=== PATIENT | female | born 1995 | race American Indian/Alaskan Native ===

== ENCOUNTER 2018-07-15 12:01 | Emergency (ER) | payer BC, MEDICAID ==
--- NOTE | 2018-07-15 12:09 | Emergency Department Report ---
Chief Complaint: Skin/Abscess/Foreign Body Stated Complaint: BARTHOLIN CYST/ABSCESS Time Seen by Provider: 07/15/18 12:07 - HPI History of Present Illness: pt presents with right sided bartholins cyst that began a week ago no drainage states she has this one time previously no fever no PMHx no allergies to meds non smoker +drinker no drug use MSE screening note: Focused history performed. ED Disposition for MSE Condition: Stable
[2018-07-15 12:10] VITALS: BP 140/76
--- NOTE | 2018-07-15 13:11 | Emergency Department Report ---
Abscess Boil HPI - HPI Chief Complaint: Skin/Abscess/Foreign Body Stated Complaint: BARTHOLIN CYST/ABSCESS Time Seen by Provider: 07/15/18 12:07 Duration: 2 Days Location: Other (right Bartholin abscess) Severity: Mild History: Yes Pain, No Fever, No Purulent Drainage, No Numbness, No Foreign Body, No Previous History, No Insect Bite HPI: This is a 23-year-old female nontoxic, well nourished in appearance, no acute signs of distress presents to the ED with c/o of right Bartholin abscess. Patient denies any pus, drainage, fever, chills, nausea, vomiting, chest pain or shortness of breath. Patient denies any allergies to significant past medical history. Home Medications: Previous Rx's Medication Instructions Recorded Last Taken Type Acetaminophen/Codeine [Tylenol 1 tab PO Q6H PRN #12 tab 07/15/18 Unknown Rx /Codeine # 3 tab] Sulfamethoxazole/Trimethoprim 1 each PO BID #14 tablet 07/15/18 Unknown Rx [Bactrim DS TAB] Allergies/Adverse Reactions: Allergies Allergy/AdvReac Type Severity Reaction Status Date / Time No Known Allergies Allergy Unverified 07/15/18 12:10 ED Review of Systems ROS: Stated complaint: BARTHOLIN CYST/ABSCESS Other details as noted in HPI Constitutional: denies: chills, fever Eyes: denies: eye pain, eye discharge, vision change ENT: denies: ear pain, throat pain Respiratory: denies: cough, shortness of breath, wheezing Cardiovascular: denies: chest pain, palpitations Endocrine: no symptoms reported Gastrointestinal: denies: abdominal pain, nausea, diarrhea Genitourinary: denies: urgency, dysuria, discharge Musculoskeletal: denies: back pain, joint swelling, arthralgia Skin: denies: rash, lesions Neurological: denies: headache, weakness, paresthesias Psychiatric: denies: anxiety, depression Hematological/Lymphatic: denies: easy bleeding, easy bruising ED Past Medical Hx - Past Medical History Previous Medical History?: No - Surgical History Past Surgical History?: No - Social History Smoking Status: Never Smoker Substance Use Type: Alcohol, Non Opiate Pain - Medications Home Medications: Home Medications Medication Instructions Recorded Confirmed Last Taken Type Acetaminophen/Codeine [Tylenol 1 tab PO Q6H PRN #12 tab 07/15/18 Unknown Rx /Codeine # 3 tab] Sulfamethoxazole/Trimethoprim 1 each PO BID #14 tablet 07/15/18 Unknown Rx [Bactrim DS TAB] ED Abscess Boil Physical Exam - Exam General: Vital signs noted. No distress. Alert and acting appropriately. Size: 2 cm Exam: Yes Tenderness, Yes Fluctuance, Yes Normal Neurologic Exam, Yes Normal Circulation, No Surrounding Cellulites/Erythema, No Lymphangitis, No Crepitation, No Heart Murmur Exam: Trinity Hudson RN present during exam and incision and drainage I & D Note - I & D Note I & D Note: Under sterile field, I used Betadine to cleanse the area. I then used 2% lidocaine plain with 25-gauge 5/8 needle to inject area for anesthetic purposes. Total volume injected 3 mL. I then used an 11 blade to make a 1 cm incision. About 2 mL's of purulent drainage has been noted. I then used a hemostat to break the abscess formation. I then used sterile 0.9% normal saline flush to flush the wound with total volume of 40 mL used. I then put a 1 inch iodoform packing to the incision. A sterile 4 x 4 with tape has been applied as dressing. Bleeding is under control. Patient tolerated the procedure well with no signs of distress noted. Chaperonekristen Hudson RN present during the procedure. ED Course Vital Signs 07/15/18 12:07 Temperature 98.3 F Pulse Rate 84 Respiratory 18 Rate Blood Pressure 140/76 O2 Sat by Pulse 100 Oximetry - Reevaluation(s) Reevaluation #1: 07/15/18 13:08 Patient is speaking in full sentences with no signs of distress noted. Critical care attestation.: If time is entered above; I have spent that time in minutes in the direct care of this critically ill patient, excluding procedure time. ED Medical Decision Making - Medical Decision Making This is a 23-year-old female that presents with right Bartholin abscess. Patient is stable and was examined by me. This is incision and drainage and has been performed and patient tolerated well. A sterile dressing has been applied. Patient was educated on proper wound care. Patient is discharged with Bactrim and Tylenol with codeine and was instructed not to operate any machinery while taking Tylenol with codeine due to drowsiness. Patient was instructed to return in 2 days for packing removal. Patient was instructed to refer to Follow-up with a primary care doctor in 3-5 days or if symptoms worsen and continue return to emergency room as soon as possible. At time of discharge, the patient does not seem toxic or ill in appearance. No acute signs of distress noted. Patient agrees to discharge treatment plan of care. No further questions noted by the patient. ED Disposition Clinical Impression: Bartholin's gland abscess Disposition: TO HOME OR SELFCARE Is pt being admited?: No Does the pt Need Aspirin: No Condition: Stable Instructions: Acetaminophen/Codeine (By mouth), Bartholin Cyst (ED), Incision and Drainage (ED) Additional Instructions: Follow-up with a primary care doctor in 3-5 days or if symptoms worsen and continue return to emergency room as soon as possible. Do not operate any machinery while taking Tylenol with codeine as this may cause drowsiness. Return in 2 days for packing removal. Prescriptions: Sulfamethoxazole/Trimethoprim [Bactrim DS TAB] 1 each PO BID #14 tablet Acetaminophen/Codeine [Tylenol /Codeine # 3 tab] 1 tab PO Q6H PRN #12 tab PRN Reason: Pain , Severe (7-10) Referrals: PRIMARY CAREMD [Referring] - 3-5 Days URIAH PAEZ MD [Staff Physician] - 3-5 Days [facility] [Outside] - 3-5 Days [facility] [Outside] - 3-5 Days Forms: Work/School Release Form(ED)
== END 2018-07-15 13:25 | disposition home or self-care (01) ==
LOC: ED 12:01
DX: N75.0 Cyst of Bartholin's gland (principal)

== ENCOUNTER 2018-10-05 12:26 | Emergency (ER) | payer BC, MEDICAID ==
--- NOTE | 2018-10-05 12:32 | Event Note ---
ED Screening Note Date of service: 10/05/18 Time: 12:31 ED Screening Note: This is a 23 y.o. F. that presents for packing removal from I&D 3 days ago. LMP 09/23/2018 This initial assessment/diagnostic orders/clinical plan/treatment(s) is/are subject to change based on patients health status, clinical progression and re- assessment by fellow clinical providers in the ED. Further treatment and workup at subsequent clinical providers discretion. Patient/guardian urged not to elope from the ED as their condition may be serious if not clinically assessed and managed. Initial orders include: ACC for further evaluation
[2018-10-05 12:33] VITALS: BP 106/70
--- NOTE | 2018-10-05 13:04 | Emergency Department Report ---
ED Female HPI - General Chief complaint: Skin/Abscess/Foreign Body Stated complaint: FOLLOW UP/PACKING REMOVAL Time Seen by Provider: 10/05/18 12:31 Source: patient Mode of arrival: Ambulatory Limitations: No Limitations - History of Present Illness Initial comments: Patient is a 23-year-old female presents to the emergency room with complaints of packing removal. she was evaluated in the emergency room on 10/02 for a right-sided Bartholin's cyst and had a I&D performed at that time. She states she has noticed a small amount of blood but denies any purulent drainage. She denies any fever or pain. she states she has been taking her antibiotics as prescribed. She states she has an appointment (10/08/18) Monday at [facility] MECHANICAL EQUIPMENT SALES ENGINEER. last menstrual cycle was September 23. Denies any past medical history or allergies to medications. - Related Data Previous Rx's Medication Instructions Recorded Last Taken Type Acetaminophen/Codeine [Tylenol 1 tab PO Q6H PRN #12 tab 07/15/18 Unknown Rx /Codeine # 3 tab] Sulfamethoxazole/Trimethoprim 1 each PO BID #14 tablet 07/15/18 Unknown Rx [Bactrim DS TAB] Fluconazole [Diflucan TAB] 150 mg PO DAILY 2 Days #2 tablet 10/02/18 Unknown Rx Ibuprofen [Motrin 800 MG tab] 800 mg PO Q8HR PRN #20 tablet 10/02/18 Unknown Rx cephALEXin [Keflex] 500 mg PO BID #20 capsule 10/02/18 Unknown Rx Allergies Allergy/AdvReac Type Severity Reaction Status Date / Time No Known Allergies Allergy Unverified 07/15/18 12:10 ED Review of Systems ROS: Stated complaint: FOLLOW UP/PACKING REMOVAL Other details as noted in HPI Comment: All other systems reviewed and negative ED Past Medical Hx - Past Medical History Previous Medical History?: No - Surgical History Past Surgical History?: No - Social History Smoking Status: Never Smoker Substance Use Type: Alcohol, Marijuana - Medications Home Medications: Home Medications Medication Instructions Recorded Confirmed Last Taken Type Acetaminophen/Codeine [Tylenol 1 tab PO Q6H PRN #12 tab 07/15/18 Unknown Rx /Codeine # 3 tab] Sulfamethoxazole/Trimethoprim 1 each PO BID #14 tablet 07/15/18 Unknown Rx [Bactrim DS TAB] Fluconazole [Diflucan TAB] 150 mg PO DAILY 2 Days #2 tablet 10/02/18 Unknown Rx Ibuprofen [Motrin 800 MG tab] 800 mg PO Q8HR PRN #20 tablet 10/02/18 Unknown Rx cephALEXin [Keflex] 500 mg PO BID #20 capsule 10/02/18 Unknown Rx ED Physical Exam - General Limitations: No Limitations General appearance: alert, in no apparent distress - Head Head exam: Present: atraumatic, normocephalic - Eye Eye exam: Present: normal appearance - ENT ENT exam: Present: mucous membranes moist - External exam: Present: other (small incision inside the right vaginal wall with packing in place, no drainage, no fluctuance, no induration, no surrounding erythema, powder mill operator: KIMMIE garcia) - Neurological Exam Neurological exam: Present: alert, oriented X3 - Psychiatric Psychiatric exam: Present: normal affect, normal mood - Skin Skin exam: Present: warm, dry ED Course Vital Signs 10/05/18 12:32 Temperature 98.1 F Pulse Rate 78 Respiratory 16 Rate Blood Pressure 106/70 O2 Sat by Pulse 100 Oximetry - Reevaluation(s) Reevaluation #1: 10/05/18 13:16 packing removed, pt tolerated well, no purulent drainage, no bleeding, irrigated with 20 cc of normal saline, small 0.5 cm incision present ED Medical Decision Making - Medical Decision Making Patient is a 23-year-old female presents to the emergency room with complaints o f packing removal. she was evaluated in the emergency room on 10/02 for a right- sided Bartholin's cyst and had a I&D performed at that time. She states she has noticed a small amount of blood but denies any purulent drainage. She denies any fever or pain. she states she has been taking her antibiotics as prescribed. She states she has an appointment (10/08/18) Monday at [facility] MECH[employer] EQUIPMENT SALES ENGINEER. last menstrual cycle was September 23. Denies any past medical history or allergies to medications. on exam: small incision inside the right vaginal wall with packing in place, no drainage, no fluctuance, no induration, no surrounding erythema, powder mill operator: KIMMIE garcia. packing removed with no difficulty or complications, no drainage present, irrigated with 20 cc of saline. advised pt to please keep area clean and dry. Please abstain from sexual intercourse. continue taking your antibiotics as prescribed. May wash area with soap and water and immediately dry. No hot tub, Bath tub, pool, soaking in water. Keep your appointment with your MECHANICAL EQUIPMENT SALES ENGINEER on Monday. Return to the emergency room for any new or worsening symptoms. Critical care attestation.: If time is entered above; I have spent that time in minutes in the direct care of this critically ill patient, excluding procedure time. ED Disposition Clinical Impression: Abscess packing removal, Cyst of right Bartholin's gland Disposition: TO HOME OR SELFCARE Is pt being admited?: No Does the pt Need Aspirin: No Condition: Stable Instructions: Bartholin Cyst (ED) Additional Instructions: Please keep area clean and dry. Please abstain from sexual intercourse. continue taking your antibiotics as prescribed. May wash area with soap and water and immediately dry. No hot tub, Bath tub, pool, soaking in water. Keep your appointment with your MECHANICAL EQUIPMENT SALES ENGINEER on Monday. Return to the emergency room for any new or worsening symptoms. [facility] RON [Referring] - 2-3 Days [facility], MECHANICAL EQUIPMENT SALES ENGINEER [Other] - 2-3 Days Time of Disposition: 13:17 Print Language: TURKISH
== END 2018-10-05 13:31 | disposition home or self-care (01) ==
LOC: ED 12:26
DX: Z48.01 Encounter for change or removal of surgical wound dressing (principal); Z79.899 Other long term (current) drug therapy; F12.10 Cannabis abuse, uncomplicated

== ENCOUNTER 2019-12-16 18:49 | Emergency (ER) | payer BC, MEDICAID ==
[2019-12-16 20:59] VITALS: BP 135/80
[2019-12-17] MEDS ORDERED: HYDROcodone/ACETAMINOPHEN 7.5-325MG TAB PO ONE (03:18)
[2019-12-17] MEDS ORDERED: SULFAMETHOXAZOLE/TRIMETHOPRIM 800/160MG DS TAB PO ONE (03:18)
[2019-12-17] MEDS ORDERED: LIDOCAINE (1%) 10 MG/1 ML VIAL 20 ML MDV INFILTRATI ONE (03:18)
[2019-12-17] MEDS ORDERED: ONDANSETRON 4 MG ODT TAB PO ONE (03:18)
[2019-12-17] MEDS ORDERED: IBUPROFEN 600 MG TAB PO ONE (03:19)
--- NOTE | 2019-12-17 04:19 | Emergency Department Report ---
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 Patient states that the pain is worse with any movement or ambulation. Patient states that the swelling Bartholin cyst is typical of the previous Bartholin cyst abscesses she has had in the past which she states has been 6 in number. Patient denies fever, chills, nausea, vomiting, vaginal bleeding, vaginal discharge, dizziness, syncope, traumatic injury, headache, abdominal pain, low back pain or cough. MD Complaint: other (right labial swelling and pain) -: Sudden, days(s) (2) Location: labia (right labium pain and swelling) Radiation: non-radiating Severity: severe Severity scale (0 -10): 8 Quality: sharp, aching Consistency: constant Improves with: none Worsens with: intercourse, movement Are you Now?: No Last Menstrual Period: 12/05/19 EDC: 09/10/20 Associated Symptoms: denies other symptoms, headaches, rash (swollen right labial rash with pain). denies: vaginal discharge, vaginal bleeding, abdominal pain, nausea/vomiting, fever/chills, loss of appetite, dysuria, hematuria, shortness of breath, syncope, weakness, other - Related Data Sexually active: Yes : 1 Para: 1 A: 0 Previous Rx's Medication Instructions Recorded Last Taken Type Ibuprofen [Motrin 800 MG tab] 800 mg PO Q8HR PRN #20 tablet 10/02/18 Unknown Rx cephALEXin [Keflex] 500 mg PO BID #20 capsule 10/02/18 Unknown Rx Acetaminophen/Codeine [Tylenol 1 tab PO Q6H PRN #12 tab 12/17/19 Unknown Rx /Codeine # 3 tab] Clindamycin [Clindamycin CAP] 300 mg PO Q8HR #60 capsule 12/17/19 Unknown Rx Fluconazole (Nf) [Diflucan TAB] 150 mg PO DAILY 2 Days #2 tablet 12/17/19 Unknown Rx Ibuprofen [Motrin] 600 mg PO Q8H PRN #30 tablet 12/17/19 Unknown Rx Ondansetron [Zofran Odt] 4 mg PO Q6HR PRN #15 tab.rapdis 12/17/19 Unknown Rx Sulfamethoxazole/Trimethoprim 1 each PO BID #20 tablet 12/17/19 Unknown Rx [Bactrim DS TAB] Allergies Allergy/AdvReac Type Severity Reaction Status Date / Time nickel Allergy Rash Verified 12/16/19 20:57 ED Review of Systems ROS: Stated complaint: ABCESS Other details as noted in HPI Constitutional: denies: chills, fever Eyes: denies: eye pain, eye discharge, vision change ENT: denies: ear pain, throat pain Respiratory: denies: cough, shortness of breath, wheezing Cardiovascular: denies: chest pain, palpitations Endocrine: no symptoms reported Gastrointestinal: denies: abdominal pain, nausea, diarrhea Genitourinary: denies: urgency, dysuria, discharge Musculoskeletal: denies: back pain, joint swelling, arthralgia Skin: rash (swollen painful rash on right labium majora). denies: lesions Neurological: denies: headache, weakness, paresthesias Psychiatric: denies: anxiety, depression Hematological/Lymphatic: denies: easy bleeding, easy bruising ED Past Medical Hx - Past Medical History Previous Medical History?: Yes Additional medical history: barthial cyst - Surgical History Past Surgical History?: No - Social History Smoking Status: Never Smoker Substance Use Type: Alcohol, Marijuana - Medications Home Medications: Home Medications Medication Instructions Recorded Confirmed Last Taken Type Ibuprofen [Motrin 800 MG tab] 800 mg PO Q8HR PRN #20 tablet 10/02/18 Unknown Rx cephALEXin [Keflex] 500 mg PO BID #20 capsule 10/02/18 Unknown Rx Acetaminophen/Codeine [Tylenol 1 tab PO Q6H PRN #12 tab 12/17/19 Unknown Rx /Codeine # 3 tab] Clindamycin [Clindamycin CAP] 300 mg PO Q8HR #60 capsule 12/17/19 Unknown Rx Fluconazole (Nf) [Diflucan TAB] 150 mg PO DAILY 2 Days #2 tablet 12/17/19 Unknown Rx Ibuprofen [Motrin] 600 mg PO Q8H PRN #30 tablet 12/17/19 Unknown Rx Ondansetron [Zofran Odt] 4 mg PO Q6HR PRN #15 tab.rapdis 12/17/19 Unknown Rx Sulfamethoxazole/Trimethoprim 1 each PO BID #20 tablet 12/17/19 Unknown Rx [Bactrim DS TAB] ED Physical Exam - General Limitations: No Limitations General appearance: alert, in no apparent distress - Head Head exam: Present: atraumatic, normocephalic, normal inspection - Eye Eye exam: Present: normal appearance, PERRL, EOMI Pupils: Present: normal accommodation - ENT ENT exam: Present: normal exam, normal orophraynx, mucous membranes moist, TM's normal bilaterally, normal external ear exam - Neck Neck exam: Present: normal inspection, full ROM - Respiratory Respiratory exam: Present: normal lung sounds bilaterally. Absent: respiratory distress, wheezes, rales, rhonchi, chest wall tenderness, accessory muscle use, decreased breath sounds - Cardiovascular Cardiovascular Exam: Present: regular rate, normal rhythm, normal heart sounds. Absent: systolic murmur, diastolic murmur, rubs, gallop - GI/Abdominal GI/Abdominal exam: Present: soft, normal bowel sounds. Absent: tenderness, guarding, rebound, hyperactive bowel sounds, hypoactive bowel sounds, organomegaly - External exam: Present: erythema, swelling, other (Swollen tender right labium majora rash with fluctuance) Bi-manual exam: Present: other (Female ED Ruling Machine Feeder Quality Control Assistant Ms Fry present during genital exam) - Extremities Exam Extremities exam: Present: normal inspection, full ROM, normal capillary refill - Back Exam Back exam: Present: normal inspection, full ROM. Absent: tenderness, CVA tenderness (R), CVA tenderness (L), muscle spasm, paraspinal tenderness, vertebral tenderness - Neurological Exam Neurological exam: Present: alert, oriented X3, CN II-XII intact, normal gait, reflexes normal - Psychiatric Psychiatric exam: Present: normal affect, normal mood - Skin Skin exam: Present: warm, dry, intact, normal color. Absent: rash ED Course Vital Signs 12/16/19 12/17/19 12/17/19 20:56 03:46 03:47 Temperature 98.4 F Pulse Rate 67 Respiratory 20 18 16 Rate Blood Pressure 135/80 O2 Sat by Pulse 100 Oximetry - I & D Right Vagina Type of Procedure: Simple Site: Right labium majora Bartholin cyst Blade Size: 11 I & D Procedure: sterile drapes applied, sterile dressing applied Progress: The right labia majora was anesthetized with 1% lidocaine solution after the area was cleaned with Betadine solution. Once anesthesia was fully achieved the abscess was incised with scalpel blade #11. Copious thick purulent discharge drained from the wound and hemostat was used to break for loculations within the Bartholin cyst. Copious amounts of normal saline was used to clean and to drain excess purulent discharge within the right Bartholin cyst gland. Word catheter was then inserted into the wound and inflated. The wound was then dressed appropriately and the patient was discharged home on pain medications and oral antibiotics and was advised to follow-up with her [employer] physician in 5 to 7 days for reevaluation or return to the ED immediately if symptoms get worse. ED Medical Decision Making - Medical Decision Making This is a A0 24-year-old -[place] female with no past medical history except chronic recurrent Bartholin cyst abscesses who presents to the ED with acute exacerbation of right labia majora swollen severely painfu Bartholin cyst for the last 2 days. Patient states that the pain is worse with any movement or ambulation. Patient states that the swelling Bartholin cyst is typical of the previous Bartholin cyst abscesses she has had in the past which she states has been 6 in number. In the ED, patient is alert and oriented x3 and is not in distress. Patient was treated for pain in the ED and also given initial oral antibiotics. The right labia majora Bartholin cyst abscess was incised and drained per protocol and patient tolerated the procedure well. On reevaluation, patient's pain is well controlled medications. The Word catheter was used instead of iodoform gauze to pack and keep the wound open. Patient was discharged home on pain medication and antibiotics and was advised to follow-up with [facility] [facility] physician in 5 to 7 days for reevaluation or return to the ED immediately if symptoms get worse. - Differential Diagnosis Bartholin cyst abscess; folliculitis; abscess; cellulitis Critical care attestation.: If time is entered above; I have spent that time in minutes in the direct care of this critically ill patient, excluding procedure time. ED Disposition Clinical Impression: Bartholin's gland abscess, Abscess or cellulitis of perineum, Acute folliculitis Disposition: TO HOME OR SELFCARE Is pt being admited?: No Does the pt Need Aspirin: No Condition: Stable Instructions: Cellulitis (ED), Folliculitis (ED), Bartholin Cyst (ED) Additional Instructions: Take medication with food, drink plenty of fluids and follow up with your Primary Care physician or Litzy-House Mover Supervisor in 7-10 days for reevaluation. Return to the ED immediately if symptoms get worse Prescriptions: Sulfamethoxazole/Trimethoprim [Bactrim DS TAB] 1 each PO BID #20 tablet Clindamycin [Clindamycin CAP] 300 mg PO Q8HR #60 capsule Fluconazole (Nf) [Diflucan TAB] 150 mg PO DAILY 2 Days #2 tablet Ibuprofen [Motrin] 600 mg PO Q8H PRN #30 tablet PRN Reason: Pain Acetaminophen/Codeine [Tylenol /Codeine # 3 tab] 1 tab PO Q6H PRN #12 tab PRN Reason: Pain , Severe (7-10) Ondansetron [Zofran Odt] 4 mg PO Q6HR PRN #15 tab.rapdis PRN Reason: Nausea Referrals: [facility] [Provider Group] - 7-10 days Forms: Work/School Release Form(ED) Time of Disposition: 04:22 Print Language: MAORI
== END 2019-12-17 06:00 | disposition home or self-care (01) ==
LOC: ED 18:49
DX: N75.1 Abscess of Bartholin's gland (principal); L02.215 Cutaneous abscess of perineum; L73.8 Other specified follicular disorders; F12.10 Cannabis abuse, uncomplicated; Z79.899 Other long term (current) drug therapy; Z91.09 Other allergy status, other than to drugs and biological substances
CPT/HCPCS: 99282; Q0162